=== PATIENT | male | born 1955 | race African-American/Black ===

== ENCOUNTER 2019-12-06 06:05 | Emergency (ER) | payer MEDICARE, SELFPAY ==
[2019-12-06 06:10] VITALS: BP 163/92; PULSE 71; RESP 18; TEMP 37.1; O2SAT 100
--- NOTE | 2019-12-06 07:06 | ED.DENTAL ---
HPI - Dental/Oral General Chief complaint: Dental/Oral Stated complaint: mouth swelling, dental issues Time Seen by Provider: 12/06/19 07:03 Source: patient Mode of arrival: ambulatory Limitations: no limitations History of Present Illness HPI Narrative: Patient is a 64-year-old male with a history of dental caries who presents for evaluation of dental pain. Patient states 2 weeks ago he had several teeth pulled on his lower palate, and patient reports that he developed swelling and pain approximately 3 days ago. No fever, chills or difficulty opening his mouth. No drainage coming from the teeth. Related Data Allergies Allergy/AdvReac Type Severity Reaction Status Date / Time No Known Allergies Allergy Verified 12/06/19 06:21 Review of Systems Review of Systems: Narrative: CONSTITUTIONAL: Denies fever CARDIOVASCULAR: Denies chest pain RESPIRATORY: Denies cough or dyspnea. GASTROINTESTINAL: Denies abdominal pain SKIN: Denies rash MUSCULOSKELETAL: Denies back pain NEUROLOGIC: Denies headache PMFSH Past Medical History Medical History (Updated 12/06/19 @ 07:54 by Pascale Garcia MD) No pertinent past medical history Family History Family History (Updated 06/18/17 @ 09:26 by DOCTOR UNKNOWN) Mother Diabetes mellitus Social History Social History Smoking status: Heavy tobacco smoker Alcohol intake: never Exam Narrative: Exam Narrative: GENERAL: Awake, alert, conversant HEAD: Normocephalic, atraumatic. EYES: PERRLA and EOMI. ENT: Nares clear, no rhinorrhea or epistaxis. Mucous membranes moist. Uvula is midline. No trismus. Palate is not elevated. Patient has some gingival edema without erythema along the lower palate, frontal incisors where teeth have been removed. No purulent discharge. No abscess noted. NECK: Supple. CHEST: No respiratory distress, breathing even and non labored HEART: Regular rate, sinus rhythm ABDOMEN:Non distended, non tender EXTREMITIES: Normal range of motion. No edema. SKIN: Warm, dry, no rash. NEURO:No focal deficits. Alert and oriented x3 Course Vital Signs Vital signs: Vital Signs Temperature 37.1 C 12/06/19 06:10 Pulse Rate 71 12/06/19 06:10 Respiratory Rate 18 12/06/19 06:10 Blood Pressure 163/92 H 12/06/19 06:10 Pulse Oximetry 100 12/06/19 06:10 Temperature 37.1 C 12/06/19 06:10 Pulse Rate 71 12/06/19 06:10 Respiratory Rate 18 12/06/19 06:10 Blood Pressure 163/92 H 12/06/19 06:10 Pulse Oximetry 100 12/06/19 06:10 MDM - Dental/Oral MDM Narrative Medical decision making narrative: Patient's pain is consistent with dental caries and infection following having teeth extracted. At the time of assessment there are no signs of systemic illness, no focal signs of space-occupying abscess or lesions, no signs of Rex angina or other concerning retropharyngeal infection. The patient is controlling his secretions well without signs of airway compromise. Patient is thought reasonable for outpatient follow-up with dental evaluation. Patient given oral antibiotics and medication for analgesia. Differential Diagnosis Differential diagnosis: Likely dental caries, toothache and dental abscess Discharge Plan Discharge Clinical Impression: Pain, dental, Dental infection Patient Disposition: Home, Self-Care Condition: Stable Instructions: Toothache (ED) Additional Instructions: Please contact your dentist for follow up from this visit for next week. If you experience worsening pain, vomiting that does not stop, bleeding complications, chest pain, shortness of breath, inability to tolerate your medications please return for reassessment. Take any prescribed medications as directed and do not miss or skip any doses of antibiotics if you have been prescribed them to take. Stay well-hydrated For fever and pain, you may take Tylenol 500 mg - 1000 mg every 8 hours, and Ibup
== END 2019-12-06 08:06 | disposition home or self-care (01) ==
PROVIDERS: Emergency Provider Emergency Medicine
DX: K04.7 Periapical abscess without sinus (principal); F17.200 Nicotine dependence, unspecified, uncomplicated
CPT/HCPCS: 99283

== ENCOUNTER → 2020-05-17 00:17 | Outpatient (CLI) | payer OTHER, SELFPAY ==
[2020-05-17 21:18] LABS: SARS-CoV-2 RNA PCR Negative
== END ==
PROVIDERS: PCP Family Medicine; Visit Provider Internal Medicine Gastroenterology
DX: Z01.812 Encounter for preprocedural laboratory examination (principal); Z20.822 Contact with and (suspected) exposure to COVID-19
CPT/HCPCS: C9803; U0003; U0005

== ENCOUNTER 2021-02-01 06:55 | Emergency (ER) | payer OTHER, SELFPAY ==
[2021-02-01 07:03] VITALS: BP 144/93; PULSE 72; RESP 16; TEMP 36.7; O2SAT 100
--- NOTE | 2021-02-01 07:34 | PC.NURSE ---
Dr. Hernandez at bedside
[2021-02-01 07:36] VITALS: BP 136/80; PULSE 63; RESP 12; O2SAT 100
--- NOTE | 2021-02-01 07:42 | ED.SKABFB ---
HPI - Skin/Abscess/Foreign Bdy General Chief complaint: Skin/Abscess/Foreign Body Stated complaint: Shingles Time Seen by Provider: 02/01/21 07:09 Source: patient Mode of arrival: ambulatory Limitations: no limitations History of Present Illness HPI narrative: 66-year-old male Because of chest pain He started with a rash on his left chest little over 10 days ago He saw his PCP and was diagnosed, correctly it appears, with shingles All of the skin lesions are crusted over at this time but he continues to have chest wall tenderness and sharp shooting pains through the area Related Data Allergies Allergy/AdvReac Type Severity Reaction Status Date / Time No Known Allergies Allergy Verified 02/01/21 07:05 Review of Systems Review of Systems: All systems reviewed & are unremarkable except as noted in HPI and below Constitutional: Constitutional: Reports no additional constitutional complaints, Denies chills, Denies fever(s) and Denies headache(s) ENT: Denies headache(s) Cardiovascular: Cardiovascular: Reports chest pain, Denies radiating jaw, neck or arm pain and Denies dyspnea Respiratory: Respiratory: Denies cough and Denies dyspnea Gastrointestinal: Gastrointestinal: Denies vomiting Musculoskeletal: Musculoskeletal: Reports back pain, Reports myalgias, Denies deformity and Denies numbness Integumentary/Breasts: Skin/Breast: Reports erythema, Reports rash and Denies wounds PMFSH Past Medical History Medical History No pertinent past medical history Smoker Family History Family History Mother Diabetes mellitus Social History Social History Smoking packs per day: 1 Smoking cigarettes per day: 20.0 Years smoked: 30 Smoking pack-years: 30.00 Tobacco type: cigarettes and cigars Alcohol intake: never Substance use: never Substance use type: does not use Gender identity (if verbalized by the patient): Male Sexual Orientation (if Verbalized by the Patient): Straight or Heterosexual Spiritual care concerns: No Exam Const: General: cooperative, healthy appearing, no acute distress and alert Nutritional Appearance: thin Orientation/consciousness: patient oriented x3 (alert) HENMT: Head: normal to inspection, normocephalic and atraumatic Ears: external ears normal Eyes: Conjunctivae: conjunctivae normal EOM: EOMs intact bilaterally Neck: Neck: supple and no JVD Chest: Chest palpation & inspection: abnormal inspection of the chest Other: Dermatomal shingles rash on left side extending from back through the lower axilla and around to near the sternum, although lesions are crusted over and healing, no sign of superinfection, area is tender and painful Resp: Effort & Inspection: normal respiratory effort and not labored Auscultation: other (BS =) GI: GI Palp: Yes Soft to palpation and No Tenderness to palpation present (GI) Skin: General skin exam: no rashes or lesions noted Other: Shingles rash Neuro: General: patient oriented x3 (alert) Speech: normal speech Course Vital Signs Vital signs: Vital Signs Temperature 36.7 C 02/01/21 07:03 Pulse Rate 72 02/01/21 07:03 Respiratory Rate 16 02/01/21 07:03 Blood Pressure 144/93 H 02/01/21 07:03 Pulse Oximetry 100 02/01/21 07:03 Temperature 36.7 C 02/01/21 07:03 Pulse Rate 63 02/01/21 07:36 Respiratory Rate 12 02/01/21 07:36 Blood Pressure 136/80 02/01/21 07:36 Pulse Oximetry 100 02/01/21 07:36 MDM - Skin/Abscess/Foreign Bdy Medical Records Attestation: I reviewed the patient's medical records. Discharge Plan Discharge Clinical Impression: Post herpetic neuralgia Patient Disposition: Home, Self-Care Condition: Stable Instructions: Antibiotic Form, Shingles (ED) Prescriptions: New capsaicin 0.025 % cream 1 applic topical TID Qty: 120 RF: 0 gabapentin [Neur
--- NOTE | 2021-02-01 08:04 | PC.NURSE ---
Dr. Hernandez updated pt on plan and prescribing medication to take at home
[2021-02-01 08:17] VITALS: BP 139/79; PULSE 60; RESP 16; TEMP 36.6; O2SAT 100
== END 2021-02-01 08:19 | disposition home or self-care (01) ==
PROVIDERS: Emergency Provider Emergency Medicine; PCP Family Medicine
DX: M79.2 Neuralgia and neuritis, unspecified (principal); F17.210 Nicotine dependence, cigarettes, uncomplicated
CPT/HCPCS: 99283

== ENCOUNTER 2022-08-08 09:34 | Outpatient (CLI) | payer OTHER, SELFPAY ==
--- NOTE | 2022-08-08 10:59 | ECHO_ITS ---
Patient Info Name: Duke Quezada Age: 67 years : 1955 Gender: Male Ht: 71 in Wt: 168 lbs BSA: 1.96 m2 HR: 78 bpm BP: 147 / 73 mmHg Technical Quality: Fair Exam Date: 08/08/2022 11:29 AM Exam Location: [facility] Patient Status: Outpatient Admit Date: 08/08/2022 Staff Ordering Physician: Kamla Garnica MD Drafter Commercial: Preeti Price RDCS Attending Provider: Kamla Garnica MD Exam Type: CA echo doppler color flow Study Info Indications - cardiac murmur Complete two-dimensional, color flow and Doppler transthoracic echocardiogram is performed. Summary 1. Complete two-dimensional, color flow and Doppler transthoracic echocardiogram is performed. 2. Left ventricular chamber dimension is normal. 3. Left ventricular systolic function is normal, estimated at 65-70%. 4. The left ventricular diastolic function is normal. 5. E/e' 8 is minimally elevated. 6. Left atrial chamber dimension is mildly enlarged. 7. There is mild aortic valve regurgitation. 8. There is trace mitral valve regurgitation. 9. There is mild tricuspid valve regurgitation. 10. There is trace pulmonic regurgitation. Left Ventricle E/e' 8 is minimally elevated. Left ventricular chamber dimension is normal. Left ventricular systolic function is normal, estimated at 65-70%. The left ventricular diastolic function is normal. Right Ventricle Right ventricular chamber dimension is normal. Right ventricular systolic function is normal. Left Atria Left atrial chamber dimension is mildly enlarged. Right Atria Right atrial chamber dimension is normal. Aortic Valve The aortic valve is trileaflet. There is no aortic valve stenosis. There is mild aortic valve regurgitation. Pulmonic Valve There is trace pulmonic regurgitation. Mitral Valve There is no mitral valve stenosis. There is trace mitral valve regurgitation. Tricuspid Valve There is mild tricuspid valve regurgitation. No pulmonary hypertension, estimated pulmonary arterial systolic pressure is 37 mmHg. Pericardium/Pleural There is no pericardial effusion. Inferior Vena Cava Normal inferior vena cava with >50% collapse upon inspiration consistent with normal right atrial pressure, 5 mmHg. Aorta The aortic root size at the sinus of Valsalva is normal. Left Ventricular Outflow Tract Name Value Normal LVOT 2D LVOT Diameter 2.0 cm LVOT Doppler LVOT Peak Gradient 6 mmHg LVOT Mean Gradient 3 mmHg LVOT VTI 24 cm LVOT VTI/AV VTI Ratio 0.8 LVOT Stroke Volume 76 ml LVOT CO 16.3 l/min LVOT CI 8.3 l/min/m2 Pulmonic Valve Name Value Normal RVOT Doppler RVOT Peak Gradient 3 mmHg PV Doppler
== END 2022-08-08 09:35 | disposition home or self-care (01) ==
PROVIDERS: PCP Family Medicine; Visit Provider Family Medicine
DX: R01.1 Cardiac murmur, unspecified (principal); I08.3 Combined rheumatic disorders of mitral, aortic and tricuspid valves
CPT/HCPCS: 93306

== ENCOUNTER 2022-08-08 09:35 | Outpatient (CLI) | payer OTHER, SELFPAY ==
--- NOTE | ~2022-08-08 | CT_ITS ---
CT Scan of the Chest without Contrast: Clinical Indication: Lung cancer screening, smoking history Technique: Contiguous sections were acquired throughout the chest without intravenous contrast. Dose reduction technique was used on this scan by utilizing automated exposure control and iterative recon struction technique. The dose-length product (DLP) was 84.81 mGy-cm. Findings: There is no evidence of any significant mediastinal, hilar or axillary lymphadenopathy. The mediastin al soft tissues appear normal. There is no evidence of pleural or pericardial effusion. There is moderate emphysema in the left upper lobe. There is mild emphysema otherwise. 4 mm right low er lobe pulmonary nodule present (axial image 81). There is chronic scarring or atelectasis at the li ngula and left lung base. Images through the upper abdomen reveal no abnormalities. Impression: Lung RADS 2: Benign appearance. 12 month follow-up screening CT advised. Reviewed, dictated and finalized at [facility]. Impression: Lung RADS 2: Benign appearance. 12 month follow-up screening CT advised.
--- NOTE | ~2022-08-08 | US_ITS ---
EXAMINATION: US aorta DATE: 08/08/2022 10:11 CDT INDICATION: Screening for aneurysm. History of smoking. TECHNIQUE: Grayscale, color Doppler, and pulsed Doppler images of the aorta and common iliac arteries were obtained. COMPARISON: None. FINDINGS: The proximal aorta measures 2.7 cm greatest sagittal dimension. The mid aorta measures 2 cm greatest sagittal dimension. The distal aorta measures 2 cm greatest sagittal dimension. The right common inte rnal iliac artery measures 1.5 cm. The left common iliac artery measures 1.4 cm. IMPRESSION: 1. Normal caliber aorta without aneurysm. Reviewed, dictated and finalized at location B.
== END 2022-08-08 09:36 | disposition home or self-care (01) ==
LOC: ANHIMG 09:36
PROVIDERS: PCP Family Medicine; Visit Provider Family Medicine
DX: Z12.2 Encounter for screening for malignant neoplasm of respiratory organs (principal); Z87.891 Personal history of nicotine dependence; Z13.6 Encounter for screening for cardiovascular disorders
CPT/HCPCS: 71271; 76775; 93306

== ENCOUNTER 2023-01-16 13:35 | Outpatient (CLI) | payer OTHER, SELFPAY ==
[2023-01-16 18:55] LABS: Basophils Percent Auto 0.4 % (0.2-1.2); Eosinophils Absolute Auto 0.1 K/mm3 (0-0.3); Eosinophils Percent Auto 2.1 % (0-4.4); Hemoglobin 13.2 g/dL (14.0-18.0); Lymphocytes Absolute Auto 2.12 K/mm3 (0.9-3.2); Lymphocytes Percent Auto 40.2 % (18.3-44.2); Mean Corpuscular HGB Conc 30.7 g/dl (32-36); Mean Corpuscular Hemoglobin 26.9 pg (26-34); Mean Corpuscular Volume 87.8 fl (80-100); Mean Platelet Volume 10.2 fl (7.4-10.4); Monocytes Absolute Auto 0.4 K/mm3 (0.1-0.6); Monocytes Percent Auto 7.8 % (2.6-8.5); Neutrophils Absolute Auto 2.6 K/mm3 (1.3-6.7); Neutrophils Percent Auto 49.5 % (45.5-73.1); Platelet Count Result 180 k/mm3 (150-375); Red Cell Distribution Width 13.5 % (11.5-14.5); White Blood Count 5.3 K/mm3 (4.5-10.0)
[2023-01-16 20:02] LABS: Prostate Specific Antigen 4.7 ng/mL (< OR = 4.0)
== END 2023-01-16 13:36 | disposition home or self-care (01) ==
PROVIDERS: PCP Family Medicine; Visit Provider Family Medicine
DX: D64.9 Anemia, unspecified (principal); R97.20 Elevated prostate specific antigen [PSA]; Z12.5 Encounter for screening for malignant neoplasm of prostate
CPT/HCPCS: 36415; 84153; 85025; G0103

== ENCOUNTER 2025-01-09 16:23 | Emergency (ER) | payer OTHER, SELFPAY ==
--- NOTE | ~2025-01-09 | CT_ITS ---
EXAMINATION: CT chest abdomen wo brady, 01/09/2025 16:40 CDT HISTORY: fall; L rib pain COMPARISON: No comparisons available. TECHNIQUE: CT scan of the chest, abdomen was performed without contrast One or more of the following dose reduction techniques were used: automated exposure control, adjustment of the mA and/or kV according to patient size, use of iterative reconstruction technique. Unless otherwise stated, incidental findings do not require dedicated follow up imaging FINDINGS: CT chest: No significant coronary calcification is present ([id number]) LUNGS: Trace left pleural effusion. No tracheomalacia. No bronchiectasis. Moderate emphysematous changes with atelectatic changes in the left lower lobe and volume loss but no contusion or pneumothorax. Apical scarring noted bilaterally. Minimal pulmonary fibrotic changes. No honeycombing. HEART AND PERICARDIUM: Within normal limits. AORTA: Normal caliber aorta. MEDIASTINUM: No mediastinal hemorrhage. THYROID: The thyroid is unremarkable. CT abdomen: LIVER: Subcentimeter probable liver cysts. SPLEEN: Unremarkable, no splenomegaly. KIDNEYS: Right Kidney: Unremarkable. No calculi. No hydronephrosis. Left Kidney: Unremarkable. No calculi. No hydronephrosis ADRENAL GLANDS: Unremarkable. PANCREAS: GALLBLADDER/BILIARY: Unremarkable. No biliary dilatation. STOMACH AND ESOPHAGUS: Visualized stomach and esophagus within normal limits. BOWEL/MESENTERY: Bowel is within normal limits, no colitis or diverticulitis. RETROPERITONEUM: Unremarkable AORTA/VASCULATURE: Normal caliber aorta. FREE FLUID OR FREE AIR: None. LYMPHADENOPATHY: No lymphadenopathy. OSSEOUS STRUCTURES: No sclerotic or lytic lesions. No acute rib fractures are identified. OVERLYING SOFT TISSUES: Unremarkable. IMPRESSION: No acute process is identified Reviewed, dictated and finalized at location P.
--- NOTE | ~2025-01-09 | XR_ITS ---
EXAMINATION: XR wrist LT min 3V, 01/09/2025 17:50 CDT HISTORY: wrist injury COMPARISON: No comparisons available. Findings: Nondisplaced impacted fracture of the distal radius. Remote corticated fracture of the ulnar styloid process. Moderate degenerative changes. Soft tissues unremarkable. Impression: Distal radial fracture Reviewed, dictated and finalized at location P. Impression: Distal radial fracture
[2025-01-09 16:24] VITALS: BP 178/92; PULSE 75; RESP 18; TEMP 36.6; O2SAT 100
--- OUTSIDE RECORDS SUMMARY | 2025-01-09 16:27 | XMS_ITS | Clinical Summary ---
Author Organization [facility] Address [address] [place] [address] Care Team Providers Care Dinkey Skinner Name Role Phone Lionel Garnica MD Primary Care Provider Allergies No known active allergies Medications acetaminophen-c odeine (TYLENOL #3) 300-30 MG tablet Take 1 tablet by mouth every 6 (six) hours as needed. 2 Active gabapentin (NEURONTIN) 300 MG capsule Take 300 mg by mouth nightly at bedtime. at bedtime 2 Active hydrocortisone 2.5 % cream Apply topically 2 (two) times daily. 1 Active valACYclovir (VALTREX) 1 g tablet Take 1,000 mg by mouth every 8 (eight) hours. 1 Active Family History Medical History Relation Comments Diabetes Mother Relation Status Comments Father Mother Social History Tobacco Use Types Packs/Day Years Used Date Smoking Tobacco: Never Smokeless Tobacco: Never Alcohol Use Standard Drinks/Week Comments Never 0 (1 standard drink = 0.6 oz pur e alcohol) Sex and Gender Information Value Date Recorded Sex Assigned at Not on file Legal Sex Male 6:47 PM CDT Gender Identity Not on file Sexual Orientation Not on file Last Filed Vital Signs Vital Sign Reading Time Taken Comments Blood Pressure 112/76 12/07/2021 11:09 AM CDT Pulse 68 12/07/2021 11:09 AM CDT Temperature 36.7 C (98 F) 12/07/2021 11:09 AM CDT Respiratory Rate - - Oxygen Saturation 98% 12/07/2021 11:09 AM CDT Inhaled Oxygen Concentration - - Weight - - Height 180.3 cm (5' 11) 12/07/2021 11:09 AM CDT Body Mass Index - - Plan of Treatment Health Maintenance Due Date Last Done Comments Colorectal Cancer Screening Colonoscopy (10 Years) 1955 Hepatitis C 01/24/1972 DTaP, Tdap and Td Vaccines ( 1 - Tdap) 1973 Pneumococcal Vaccine: 50+ Ye ars (1 of 1 - PCV) 01/24/2004 Zoster Vaccines (1 of 2) 01/24/2004 Annual Medicare Wellness Visit 2019 COVID-19 Vaccine (1 - 2023-2 5 season) 2024 Influenza Adult (#1) 2024 RSV Immunization or 60+ Years (1 - 1-dose 75+ series) 2029 Meningococcal B Vaccine Aged Out No l onger eligible based on patient's age to complete this topic Meningococcal Vaccine Aged Out No lucina román eligible based on patient's age to complete this topic RSV Immunizations Under 20 Months Aged Out No longer eligible based on patient's age to complete this topic Insurance [employer] Care Teams Dinkey Skinner Relationship Specialty Start Date End Date Lionel Garnica MD [address] [place] [address] PCP - General FAMILY PRACTICE 06/30/21
--- NOTE | 2025-01-09 17:38 | ED.FALL ---
HPI - Fall General Chief Complaint: Fall Stated Complaint: fall-rib pain, L hand pain Time Seen by Provider: 01/09/25 16:29 History of Present Illness HPI Narrative: Patient was helping his friend move around 1:00 p.m. today when he fell, hitting his left ribs, and hurting his left wrist. The pain has been worsening and sometimes feels like it is taking his breath away, so he came in to get checked out. Related Data Home Medications ?Medication ?Instructions ?Recorded ?Confirmed ?Last Taken ?Type cholecalciferol (vitamin D3) 50 50 mcg PO DAILY 01/16/23 11/16/24 Unknown History mcg (2,000 unit) capsule zinc acetate 25 mg (zinc) capsule 25 mg PO DAILY 01/16/23 11/16/24 Unknown History (Galzin) Saw sakina BYMOUTH DAILY 11/16/24 11/16/24 Unknown History Allergies Allergy/AdvReac Type Severity Reaction Status Date / Time No Known Allergies Allergy Verified 11/16/24 10:44 Review of Systems Review of Systems: All systems reviewed & are unremarkable except as noted in HPI and below PMFSH Past Medical History Medical History (Updated 01/09/25 @ 18:42 by Hawa Henderson MD) Heart murmur Overactive bladder GERD without esophagitis Herpes zoster (~12/2020) Family History Family History Mother Diabetes mellitus Social History Social History Smoking packs per day: 1 Smoking cigarettes per day: 20.0 Years smoked: 30 Smoking pack-years: 30.00 Smoking status: Former smoker Tobacco type: cigarettes and cigars Smoking end date: 07/30/22 Alcohol intake: never Substance use: never Substance use type: does not use Lack of Transportation: No Lack of Food: Never True Current Housing: I Have Housing Concerned About Future Housing: No Difficulty Paying Gas/Electric Bills: No Difficulty Paying for Meds: No Currently Unemployed: No Education: High School Diploma/GED Difficulty w/ Childcare or Family Care: No Living arrangements: with family Occupation/Education: retired Gender identity (if verbalized by the patient): Male Sexual Orientation (if Verbalized by the Patient): Straight or Heterosexual Spiritual care concerns: No Exam Narrative: EXAMINATION OF ORGAN SYSTEMS/BODY AREAS: Constitutional: Vital signs per nursing GENERAL: Appears to be in quite amount of pain; very pleasant and garrulous patient HEAD: Normal with no signs of head trauma. EYES: EOMI, conjunctiva normal ENT: Hearing grossly intact LUNGS: Nonlabored breathing. Clear to auscultation bilaterally HEART: [Regular rate and rhythm], L radial pulse ABD: [Soft], [nontender to palpation] to abdomen; quite tender to L lateral ribs EXT: Normal range of motion with some tenderness to the left wrist no obvious deformity SKIN: No obvious bruising appreciated NEURO: [Alert and oriented x 3. No gross focal sensory or strength deficits.] PSYCH: Normal affect Course Vital Signs Vital signs: Vital Signs Temperature 97.8 F 01/09/25 16:24 Pulse Rate 75 01/09/25 16:24 Respiratory Rate 18 01/09/25 16:24 Blood Pressure 178/92 H 01/09/25 16:24 Pulse Oximetry 100 01/09/25 16:24 Oxygen Delivery Room Air 01/09/25 16:24 Temperature 97.8 F 01/09/25 16:24 Pulse Rate 75 01/09/25 16:24 Respiratory Rate 18 01/09/25 16:24 Blood Pressure 178/92 H 01/09/25 16:24 Pulse Oximetry 100 01/09/25 16:24 Oxygen Delivery Room Air 01/09/25 16:24 Procedures Orthopedic Splinting/Casting Injury #1: Splinting/Casting Date: 01/09/25 Splinting/Casting Time: 19:08 Side: left Upper Extremity Injury Location: wrist Upper Extremity Immobilizer: volar splint Splint: customized in ED Pre-Procedure Neuro Vascular Exam: normal Post-Procedure Neuro Vascular Exam: normal MDM - Fall MDM Narrative Medical decision making narrative: Patient was helping his friend move around 1:00 p.m. today when he fell, hitting his left ribs, and hurting his left wrist. The pain has been worsening and sometimes feels like it is taking his breath away, so he came in to get checked out. On exam he has tenderness to L ribs, no obvious deformity to L wrist, and appears to be quite in a lot of pain. CT chest/abd/pelvis thankfully neg for acute fx or abnormality. Wrist xr unfortunately showing a fracture of radius. 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 Pain is now very well controlled/improved. Splint applied; patient tolerated well. Initial blood pressure was quite elevated when he arrived though I suspect this is from pain, his repeat was improved. I did discuss this with the patient, he states that his doctor is aware, does not think he needs to be started on medicine at this time, I will have him follow-up his PCP with return precautions. Patient agreeable to this plan. Follow-up to Orthopedics provided. Discharge Plan Discharge Clinical Impression: Fracture of wrist, Contusion of rib Patient Disposition: Home Condition: Stable Instructions: Wrist Fracture in Adults (ED), Rib Contusion (ED) Additional Instructions: Please follow-up with primary care doctor and with the orthopedic surgeon. Your blood pressure was also elevated here, though this may be from the pain. Please follow-up with To see if you need to be started on blood pressure medicine. Patient Language: Sinhala Prescriptions: New oxycodone 5 mg capsule 5 mg PO Q8H PRN (Reason: pain) Qty: 10 0RF lidocaine 5 % adhesive patch,medicated 1 patch topical DAILY Qty: 15 0RF Rx Instructions: leave on most painful area for up to 12 hrs acetaminophen [Tylenol Extra Strength] 500 mg tablet 1,000 mg PO Q6H PRN (Reason: pain) Qty: 50 0RF No Action Galzin 25 mg (zinc) capsule 25 mg PO DAILY cholecalciferol (vitamin D3) 50 mcg (2,000 unit) capsule 50 mcg PO DAILY Saw [place] BYMSUTH DAILY cyanocobalamin (vitamin B-12) 1,000 mcg tablet, sublingual 1,000 mcg sublingual DAILY Qty: 90 2RF Follow-up/Referrals: Gray Macdonald MD [Physician, Orthopedics] - 2 Days Kamla Garnica MD [Primary Care Provider, Family Practice] - 2 Days
[2025-01-09] MEDS: LIDOCAINE 5% PATCH 1 PATCH TRANSDERM (18:17)
[2025-01-09] MEDS: oxyCODONE/ACETAMINOPHEN (*CRX) 5-325 MG TABLET 1 TABLET PO (18:17)
[2025-01-09 18:45] VITALS: BP 149/79; PULSE 79; RESP 20; O2SAT 99
== END 2025-01-09 19:52 | disposition home or self-care (01) ==
PROVIDERS: Emergency Provider Emergency Medicine; PCP Family Medicine
DX: S52.502A Unspecified fracture of the lower end of left radius, initial encounter for closed fracture (principal); S52.612A Displaced fracture of left ulna styloid process, initial encounter for closed fracture; S20.212A Contusion of left front wall of thorax, initial encounter; N32.81 Overactive bladder; K21.9 Gastro-esophageal reflux disease without esophagitis; Z87.891 Personal history of nicotine dependence; W18.09XA Striking against other object with subsequent fall, initial encounter
CPT/HCPCS: 29125; 71250; 73110; 74150; 99284; A9270